=== PATIENT | female | born 1955 | race Caucasian/White ===

== ENCOUNTER 2016-09-30 09:40 | Emergency (ER) | payer OTHER ==
[~2016-09-30] VITALS: Ht 162.6 cm; Wt 94.5 kg
[2016-09-30 09:48] VITALS: BP 145/95; PULSE 85; RESP 16; O2SAT 96
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
--- NOTE | 2016-09-30 10:28 | DRSVH ---
PROCEDURE: X-RAY RIGHT FOREARM, TWO VIEWS ([id number]) INDICATIONS: twisited, swollen, painful TECHNIQUE: 2 views of the forearm were acquired. COMPARISON: None. FINDINGS: Bones: Linear lucency traversing the distal radius. No suspicious bony lesions. Soft tissues: No suspicious soft tissue calcifications or masses. IMPRESSION: Possible minimally displaced distal radial fracture. This could be further assessed with pain films of the wrist, if clinically indicated. Dictated by: Hayley Marques M.D. on 09/30/2016 at 10:25 Approved by: Hayley Marques M.D. on 09/30/2016 at 10:26
--- NOTE | 2016-09-30 10:54 | DRSVH ---
PROCEDURE: X-RAY RIGHT WRIST COMPLETE, MINIMUM THREE VIEWS ([id number]) INDICATIONS: pain post fall, probable distal radius fracture TECHNIQUE: 4 views of the wrist were acquired. COMPARISON: None. FINDINGS: Bones: No fractures or dislocations. No suspicious bony lesions. Scaphoid view: Negative Soft tissues: No suspicious soft tissue calcifications. IMPRESSION: No acute fracture. No osseous lesion. If clinical suspicion and/or symptoms persist, fur ther assessment with repeat plainfilms, or advanced imaging (e.g., CT, MRI, or bone scan) may be help ful for further assessment. Dictated by: Hayley Marques M.D. on 09/30/2016 at 10:52 Approved by: Hayley Marques M.D. on 09/30/2016 at 10:52
[2016-09-30 11:31] VITALS: BP 168/93; PULSE 76; RESP 20; O2SAT 98
== END 2016-09-30 11:30 | disposition home or self-care (01) ==
LOC: SED 09:40
DX: S52.501A Unspecified fracture of the lower end of right radius, initial encounter for closed fracture (principal); W17.89XA Other fall from one level to another, initial encounter; Y93.9 Activity, unspecified; Y92.89 Other specified places as the place of occurrence of the external cause; Y99.9 Unspecified external cause status; E11.9 Type 2 diabetes mellitus without complications; Z85.42 Personal history of malignant neoplasm of other parts of uterus; Z85.850 Personal history of malignant neoplasm of thyroid; Z88.1 Allergy status to other antibiotic agents; Z88.2 Allergy status to sulfonamides